=== PATIENT | female | born 1995 | race Two or more races ===

== ENCOUNTER 2024-09-16 00:51 | Emergency (ER) | payer BC, OTHER ==
[~2024-09-16] VITALS: Ht 170.2 cm; Wt 105.7 kg
[2024-09-16 02:30] VITALS: BP 106/67; PULSE 106; TEMP 98.7
[2024-09-16] MEDS: DexAMETHasone SOD PHOS 10MG/1ML VIAL INJ IM ONE (02:38)
[2024-09-16 02:49] VITALS: RESP 20; O2SAT 98
[2024-09-16] MEDS: ALBUTEROL SULF 2.5 MG/0.5ML(0.5%) NEB SOLN NEB ONE (02:49)
[2024-09-16] MEDS: IPRATROPIUM BROM 0.5 MG/2.5ML INH SOL NEB ONE (02:49)
--- NOTE | 2024-09-16 04:49 | ED.PDOC ---
SOB-HPI HPI Comments This is a 28-year-old female presents to the ED chief complaint wheezing x2 days. Patient states has been using her albuterol inhaler at home with little relief x2 days. Reports increasing use albuterol hfa and wheezing denies fevers or chills. States shortness of breath denies chest pain nausea vomiting diarrhea. Positive cough. Chief Complaint: Cough Time Seen by MD: 01:08 Reviewed notes: Nurses Notes, Medications, Allergies Information Source: Patient Mode of Arrival: Ambulatory Past Medical History PAST MEDICAL HISTORY: Asthma Family History Family History: Reviewed,noncontributory to illness Social History Smoker: Non-Smoker Alcohol: Denies ETOH Use Drugs: Denies Drug Use Constitutional: reports: fever; denies: chills, diaphoresis, fatigue, malaise, sweats, weakness, others EENTM: reports: nasal discharge; denies: blurred vision, double vision, ear b leeding, ear discharge, ear drainage, ear pain, ear ringing, eye pain, eye redness, hearing loss, mouth pain, mouth swelling, nose bleeding, nose congestion, nose pain, photophobia, tearing, throat pain, throat swelling, voice changes, others Respiratory: reports: cough, shortness of breath, wheezing; denies: hemoptysis, orthopnea, SOB at rest, SOB with excertion, stridor, others Cardiovascular: denies: chest pain, dizzy spells, diaphoresis, Dyspnea on exertion, edema, irregular heart beat, left arm pain, lightheadedness, palpi tations, PND, syncope, others Gastrointestinal: denies: abdomen distended, abdominal pain, blood streaked bowels, constipated, diarrhea, dysphagia, difficulty swallowing, hematemesis, melena, nausea, poor appetite, poor fluid intake, rectal bleeding, rectal pain, vomiting, others Genitourinary: denies: abnormal vagina bleeding, burning, dyspareunia, dysuria, flank pain, frequency, hematuria, incontinence, pain, , vagina discharge, urgency, others Neurological: denies: dizziness, fainting, headache, left sided numbness, left sided weakness, numbness, paresthesia, pre-existing deficit, right sided numbness, right sided weakness, seizure, speech problems, tingling, tremors, weakness, others Musculoskeletal: denies: back pain, gout, joint pain, joint swelling, muscle pain, muscle stiffness, neck pain, others Integumetry: denies: bruises, change in color, change in hair/nails, dryness, laceration, lesions, lumps, rash, wounds, others Allergic/Immunocompromised: denies: Difficulty Healing, Frequent Infections, Hives, Itching, others Hematologic/Lymphatic: denies: anemia, blood clots, easy bleeding, easy bru ising, swollen glands, others Physical Exam General Appearance: No Apparent Distress, Normal HEENT: Normal ENT Inspection, Pharynx Normal, TMs Normal Neck: Full Range of Motion, Non-Tender Respiratory: Chest Non-Tender, Lungs Clear, No Accessory Muscle Use, No Respiratory Distress, Normal Breath Sounds Cardiovascular: No Edema, No JVD, No Murmur, No Gallop, Normal Peripheral Pulses, Regular Rate/Rhythm Breast Exam: Deferred Gastrointestinal: No Organomegaly, Non Tender, No Pulsatile Mass, Normal Bowel Sounds, Soft Genitalia: Deferred Pelvic: Deferred Rectal: Deferred Extremities: Normal capillary refill, Normal inspection, Normal range of motion, Non-tender, No pedal edema Musculoskeletal : Apperance: Normal Neurologic: Alert, feed mixer helper II-XII nml as Tested, No Motor Deficits, Normal Affect, Normal Mood, No Sensory Deficits Cerebellar Function: Normal Reflexes: Normal Skin: Dry, Normal Color, Warm Lymphatic: No Adenopathy Was a procedure done? Was a procedure done?: No Differential Dx Differential Diagnosis: Asthma, Bronchitis, Pneumonia, Sinusitis, Allergic Rhinitis X-Ray, Labs, Meds, VS Vital Signs Date Time Temp Pulse Resp B/P (MAP) Pulse Ox O2 Delivery O2 Flow Rate FiO2 09/16/24 02:49 20 98 Room Air* 0 21 09/16/24 02:30 98.7 106 20 106/67 (80) 97 98.7 09/16/24 02:30 106 20 97 Room Air 09/16/24 01:11 98.1 103 20 120/80 (93) 99 09/16/24 01:11 20 99 Room Air* 0 21 Current Medications Medications (Trade) Dose Ordered Sig/Dionisio Route Start Time Stop Time Status Last Admin Albuterol (Ventolin Medneb) 5 mg ONCE ONCE NEB 09/16/24 02:30 09/16/24 02:31 DC 09/16/24 02:49 Ipratropium Varney (Atrovent Medneb) 0.5 mg ONCE ONCE NEB 09/16/24 02:30 09/16/24 02:31 DC 09/16/24 02:49 Dexamethasone Sodium Phosphate (Decadron Injection) 10 mg ONCE ONCE IM 09/16/24 02:30 09/16/24 02:31 DC 09/16/24 02:38 X-Ray, Labs, Meds, VS Comment Given duo neb Atrovent and albuterol with good results lung sounds clear bilate ral after treatment. Also given Decadron 10 mg IM. Patient states she feels better than before coming in requesting to be discharged at this time. Chest x- ray shows no acute cardiopulmonary concerns. Patient states she has albuterol inhaler and enough medication states she is leaving tomorrow gone back home. Follow up with PCP in 2-3 days as necessary. Return precautions given patient indicated understanding agrees with discharge plan of care. Time of 1ST Reevaluation: 04:55 Reevaluation 1ST: Improved Patient Education/Counseling: Diagnosis, Treatment, Prognosis, Need For Follow Up Family Education/Counseling: No Family Present Departure 1 Departure Time of Disposition: 04:55 Impression: Primary Impression: Asthma attack Qualified Codes: J45.41 - Moderate persistent asthma with (acute) exacerbation Disposition: 01 HOME / SELF CARE / HOMELESS Condition: Stable Discharged With: Self Critical Care Note Critical Care Time?: No Stability Stability form required: No Heart Score Heart Score: Heart Score Response (Comments) Value History N/A 0 EKG N/A 0 Age <45 0 Risk Factors N/A 0 Troponin N/A 0 Total 0 VIOLET MATTHEW Sep 16, 2024 04:49
--- NOTE | 2024-09-16 04:53 | DVH ---
CHEST RADIOGRAPH Indication: sob Technique: Frontal and lateral view of the chest was obtained Comparison: None FINDINGS: Lines and Tubes: None Lungs: Clear Pleura: No effusion. No pneumothorax. Cardiomediastinal contours: Unremarkable Bones: Unremarkable IMPRESSION: No evidence of acute disease.
== END 2024-09-16 05:06 | disposition home or self-care (01) ==
LOC: ER 00:51
DX: J45.901 Unspecified asthma with (acute) exacerbation (principal)
CPT/HCPCS: 71046; 94640; 96372; 99283; J1100